=== PATIENT | female | born 1925 | race Caucasian/White ===

== ENCOUNTER 2016-10-03 16:13 | Inpatient (IN) | payer BC ==
--- NOTE | ~2016-10-03 | IDS ---
Interim Discharge Summary [facility] [address] [place]. [address] NAME: CELESTE MCCLURE : [birth year] STATUS : ADM IN PAT#: [id number] AGE: 89 ADM/REG DATE : 10/03/16 MR#: [id number] REPORT SERV DATE: 10/08/16 DICTATED BY: GARRISON BILL DATE: 10/07/16 REPORT STATUS : Draft TRANSCRIBED BY: MODL DATE: 10/07/16 ADMISSION DATE: 10/03/2016 DISCHARGE DATE: PRINCIPAL DIAGNOSIS: Acute systolic congestive heart failure with [id number] elevation myocardial infarction and cardiogenic shock. SECONDARY DIAGNOSIS: 1. Pubic ramus fracture with large hip hematoma and acute blood loss anemia and also recurrent syncope with hypotension secondary to #1. 2. Thrombocytopenia. 3. Cardiac cachexia. HISTORY PRESENT ILLNESS: Please see Dr. Taveras's dictation, 10/03/2018. HOSPITAL COURSE: Admitted with a pubic ramus fracture after recurrent syncopal events led to a fall upon her bottom with resulting pubic ramus fracture and a large hip hematoma. The patient was found to have significant blood loss anemia but also severe thrombocytopenia with a platelet count of 27. Blood and platelets were ordered. However, upon evaluating the patient, she was found to be hypotensive with a very abnormal cardiac exam including a highly enlarged and displaced cardiac upstrokes with severe anasarca, diminished peripheral perfusion, and highly elevated jugular venous distention. The patient had a concerning exam for cardiogenic shock. EKG revealed nonspecific ST-segment depression throughout most leads. Initial troponin was 2, follow up troponin was 30. The patient was transferred to the cardiac floor, was put on a Lasix infusion and dopamine infusion in addition to receiving the blood products. Initially, she responded poorly but did diurese, had a dopamine rate at 7.5 mcg/kg per minute, the patient's color improved, and her respiratory status improved. She was not, however, felt to be a candidate for physical therapy and still struggled with difficulties with thrombocytopenia and pain in the pelvic area. The patient had an echocardiogram, revealed an ejection fraction of 10%. Even off the dopamine, blood pressure was too low for afterload reduction of beta blockade. The presence of the severe thrombocytopenia precluded the use of any aspirin or products for any anticoagulants. The patient in fact was felt to have terminal disease. The sons understood her prognosis as did the patient; however, the patient's who is extremely old and infirm himself was reluctant to agree to hospice care, they were pending to meet with them to discuss hospice strategies at a [facility] placement on 10/08/2016 but anticipating that the patient's mortality over the coming weeks was extremely high regardless of any interventions that we might do. KATHARINA/AMAURY Garrison Bill M.D. Interim Discharge Summary [address] [address] NAME: CELESTE MCCLURE : [birth year] STATUS : ADM IN PAT#: [id number] AGE: 89 ADM/REG DATE : 10/03/16 MR#: [id number] REPORT SERV DATE: 10/08/16 DICTATED BY: GARRISON BILL DATE: 10/07/16 REPORT STATUS : Draft TRANSCRIBED BY: AMAURY DATE: 10/07/16 / [id number] CC: Scott Butterfield M.D. Theodore Richards, M.D.
--- NOTE | ~2016-10-03 | CN ---
Consultation Report [facility] [address] [place]. [address] NAME: CELESTE MCCLURE : [birth year] STATUS : ADM IN PAT#: [id number] AGE: 89 ADM/REG DATE : 10/03/16 MR#: [id number] REPORT SERV DATE: 10/04/16 DICTATED BY: DAIN BOWERS DATE: 10/04/16 REPORT STATUS : Draft TRANSCRIBED BY: AMAURY DATE: 10/04/16 DATE OF CONSULTATION: 10/04/2016 REASON FOR CONSULTATION: Pelvic fracture. HISTORY OF PRESENT ILLNESS: Ms Mcclure is an 89-year-old female, who fell landing on her left side yesterday. She had immediate onset of pain and was unable to ambulate after the fall. She presented to the [facility] Emergency Room, where x-rays showed a left superior and inferior pubic ramus fracture. I have now been asked to see her for evaluation and treatment. On questioning, she complains of only left hip pain. She denies any mental status changes or loss of consciousness at the time of the fall. On physical examination, she is awake, alert, and oriented. There is no evidence of bony injury to either upper extremity or right lower extremity. With regard to her left lower extremity, there is no shortening or rotational deformity. She has some minimal trochanteric tenderness. She cannot actively straight leg raise. She has a mild-to- moderate amount of pain with passive straight leg raising. There was very minimal pain with axial loading of her left lower extremity. She is tender over the left superior pubic ramus. There is no right-sided tenderness. She has normal sciatic nerve function on the left and weakly present, but palpable pedal pulses. DIAGNOSTIC STUDIES: X-rays show a minimally displaced left superior and inferior pubic ramus fractures. IMPRESSION: Left superior and inferior pubic ramus fractures. Ms Mcclure can be immobilized and weightbearing as tolerated with physical therapy using a walker. Follow up with Dr. Cota in three to four weeks. Thanks for the consultation. ONEL/AMAURY Dain Bowers M.D. / [id number] CC: Nilesh Alba M.D. Chele Pérez M.D.
--- NOTE | ~2016-10-03 | DS ---
Discharge Summary [facility] [address] [place]. [address] NAME: CELESTE MCCLURE : [birth year] STATUS : ADM IN [facility]#: [id number] AGE: 89 ADM/REG DATE : 10/03/16 MR#: [id number] REPORT SERV DATE: 10/09/16 DICTATED BY: AHMET WEAVER DATE: 10/08/16 REPORT STATUS : Draft TRANSCRIBED BY: MODJose DATE: 10/08/16 ADMISSION DATE: 10/03/2016 DISCHARGE DATE: 10/09/2016 PROCEDURES DONE: 1. On 10/03/2016 x-ray of hip: Acute appearing left superior and inferior pubic rami fractures. Severely decreased mineralization of bone. If dura remains concern for additional fracture or deformities, then followup CT might be considered. 2. On 10/03/2016 CT of the pelvis without contrast. Minimally displaced fractures anterior column left acetabulum, minimally displaced fracture superior left pubic symphysis, mildly displaced fractures inferior left pubic ramus, and minimally displaced vertical fracture through the body of the left sacrum parallel to the SI joint. No associated SI joint diathesis. Old postsurgical changes right proximal femur and lumbosacral spine. 3. On 10/04/2016 chest x-ray: Low lung volumes with bibasilar atelectasis and crowding of the pulmonary vasculature. No definite acute infiltrate seen. Atherosclerotic change of the thoracic aorta. 4. On 10/04/2016 x-ray of lower extremity: No evidence of acute left lower DVT. 5. On 10/05/2016 2D echo: Severely decreased left ventricular systolic function with an EF of 10% to 15%. Dilated left ventricle. Global hypokinesis with more focal anterior/septal hyper contractility. Right ventricle is moderately enlarged with severely reduced systolic function. Severe pulmonary hypertension. Moderate to severe tricuspid regurgitation. Moderate mitral regurg. By atrial enlargement. Echogenic material in the left lung adjacent to posterior left ventricle questionable unclear etiology. CONSULTATIONS: 1. Dain Bowers M.D. for Orthopedics. 2. Cardiology consult. REASON FOR ADMISSION: Fall with left hip pain. Please refer to interim discharge summary dated 10/07/[address] Alba. HISTORY OF HOSPITAL STAY: An 89-year-old white female with past medical history of recurrent falls with status post cervical fracture approximately three months ago, hyperlipidemia, GERD, status post right hip injury, chronic edema, presenting with fall with left hip pain. The patient was admitted for further evaluation of fall with left hip pain. Orthopedics was consulted and felt the patient will just be weightbearing regarding her left hip pain from fall. On further evaluation the patient was found to have abnormal cardiac exam which led to diagnosis of non-ST elevation [place]. Both on EKG findings as well as troponin elevations. Cardiology was consulted and felt the patient is not a candidate for any intervention, and felt that the patient is more appropriate for hospice. The patient was put on dobutamine secondary to the low EF of 10% and also diuresis. The patient was able to respond, but again due to the patient's severe congestive heart failure, the patient could not get the necessary medicines for beta shashi or DAMIAN inhibitors. During this time, the patient was Discharge Summary [address] [place]. [address] NAME: CELESTE MCCLURE : [birth year] STATUS : ADM IN [facility]#: [id number] AGE: 89 ADM/REG DATE : 10/03/16 MR#: [id number] REPORT SERV DATE: 10/09/16 DICTATED BY: AHMET WEAVER DATE: 10/08/16 REPORT STATUS : Draft TRANSCRIBED BY: AMAURY DATE: 10/08/16 agreeable to hospice care due to severity of her illness. Both the sons at bedside prior to the day of discharge agreed with [facility]. The patient is being planned for a discharge on 10/09/2016. DISPOSITION: The patient is in comfort, feeling no pain. ACTIVITY: As tolerated. DIET: Regular. INSTRUCTIONS UPON DISCHARGE: None, the patient will be followed by [facility]. MEDICATIONS UPON DISCHARGE: 1. Levothyroxine 100 mcg p.o. daily. 2. Prilosec 40 mg p.o. daily. 3. Zoloft 50 mg p.o. b.i.d. 4. Zocor 80 mg p.o. q.h.s. DIAGNOSES UPON DISCHARGE: 1. Fall with left hip pain secondary to pubic ramus fracture. 2. 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 3. Jis-[id number] myocardial infarction. 4. Anemia secondary to acute blood loss. 5. Thrombocytopenia. 6. C-spine fracture secondary to fall. 7. Hypothyroid. 8. Gastroesophageal reflux disease. FBJ/MODL Ahmet Weaver MD / [id number] CC: MD Chele Cid M.D.
--- NOTE | ~2016-10-03 | HP ---
History And Physical [facility] [id number] [place]. [address] NAME: CELESTE MCCLURE : [birth year] STATUS : ADM IN [facility]#: [id number] AGE: 89 ADM/REG DATE : 10/03/16 MR#: [id number] REPORT SERV DATE: 10/04/16 DICTATED BY: YAMILETH TURCIOS DATE: 10/04/16 REPORT STATUS : Draft TRANSCRIBED BY: MODL DATE: 10/04/16 DATE OF ADMISSION: 10/03/2016 CHIEF COMPLAINT: Fall with left hip pain. HISTORY OF PRESENT ILLNESS: The patient is an 89-year-old female with past medical history of recurrent falls and recent cervical fracture approximately three months ago, seen at [facility] by Dr. Guerrero and in current [facility], who is at home doing daily activities when she had same-level fall and had acute left hip and bottom pain. Symptoms have been constant, moderate, happened approximately five to six hours prior to arrival. Quality was approximately dull without radiating, not associated with any nausea, vomiting, fever, chills, shortness of breath, diarrhea, wheezing, or sweating, and did not have any neck trauma or head trauma. Symptoms worsened by range of motion and palpation, relieved only by rest and IV pain medication given in emergency room. Symptoms still present but significantly improved. REVIEW OF SYSTEMS: A 10-point review of systems negative except that noted in the HPI. PAST MEDICAL HISTORY: GERD, recent cervical fracture, multilevel, seen by Dr. Guerrero in [facility], chronic edema, hyperlipidemia, GERD, and right hip surgery. FAMILY HISTORY: Negative for heart disease and diabetes. SOCIAL HISTORY: No smoking, alcohol, or illicits. at home. SURGICAL HISTORY: Has had prior orthopedic surgeries and currently in [place] collar, nonsurgical. PHYSICAL EXAMINATION: VITAL SIGNS: The patient's blood pressure 104/56, temperature , respirations 16, O2 sats 95%. GENERAL: No acute distress, calm, pleasant, comfortable, alert. EYES: No scleral icterus, EOMI, but does have right cataract. ENT: Nares patent. Tongue midline. NECK: In [place] collar. RESPIRATORY: Clear to auscultation. No wheezes or rales. CV: Regular rate. No rubs or gallops. GI: Soft, nontender, and nondistended. Bowel sounds positive. : Deferred. MUSCULOSKELETAL: Does have pain with hip flexion, rotation, and range of motion, but sensation is still grossly intact in lower extremities. Moves all extremities. Strength in feet, equal and symmetrical. Strength in hands, equal and symmetrical. SKIN: Warm and dry. LYMPH: Does have mild bilateral pedal edema. HEME: No bleeding or bruising. History And Physical [address] [place]. [address] NAME: CELESTE MCCLURE : [birth year] STATUS : ADM IN PAT#: [id number] AGE: 89 ADM/REG DATE : 10/03/16 MR#: [id number] REPORT SERV DATE: 10/04/16 DICTATED BY: YAMILETH TURCIOS DATE: 10/04/16 REPORT STATUS : Draft TRANSCRIBED BY: AMAURY DATE: 10/04/16 NEURO: Alert and oriented. Sensation is intact in lower extremities and upper extremities and moves hands, fingers, toes symmetrically and symmetrical hand band sewer. Complete lower extremity exam with flexion slightly limited due to pain. PSYCH: Appropriate mood and affect, pleasant, joking manner. LABORATORY DATA: No labs currently. Pelvis CT, minimally displaced fractures, anterior column left acetabulum, minimally displaced fracture superior left pubic symphysis, mildly displaced fracture of the inferior left pubic ramus, and minimally displaced vertical fracture through the body of the left sacrum parallel to the SI joint. No associated SI joint diastasis, old postsurgical changes to the right proximal femur and lumbosacral spine. No EKG currently on chart. ASSESSMENT: 1. Acetabulum and left pubic symphysis fracture. 2. Gastroesophageal reflux disease. 3. Fall. 4. Prior cervical fracture, in [place] collar. 5. Chronic edema. 6. Hyperlipidemia. PLAN: 1. Acetabulum, pubic symphysis fracture, pain control. Ortho evaluation likely nonoperative, but we will have PT/OT evaluation. 2. GERD, Protonix. 3. Fall, frequent, will need PT/OT for strength support, currently in [place] collar secondary to multilevel cervical fracture. 4. Prior cervical fracture, in [place] collar, multilevel reported per patient. Sees Dr. Guerrero at [facility]. We will try to obtain records. 5. Chronic edema. Check BMP and TSH. She is on diuretics empirically for many years. 6. Hyperlipidemia, on Zocor. All questions answered. DISPOSITION: Pending ortho evaluation. PT/OT. DDN/MODL Yamileth Turcios MD / [id number] CC: Scott Butterfield M.D.
[~2016-10-03 16:13] MED LIST: ACCU10 PO; ACCUPRIL40 MG PO; ATEN25 PO; ATV.5 PO; ATV1 PO; BAC PO; BUM2 PO; LORT7 PO; LORTAB 5 PO; MAX25 PO; PROTONIX PO; STOOL SOFTEN100 MG PO; STOOL SOFTEN240 MG PO; SYN075 PO; ZOCOR40 PO; ZOCOR80 MG PO; ZOL50 PO; [UNRECOGNIZED DRUG - OTHER] PR
[2016-10-03] MEDS ORDERED: ZOCOR80 MG PO (21:53)
[2016-10-03] MEDS ORDERED: ZOL50 PO (21:53)
[2016-10-03] MEDS ORDERED: ATV1 PO (21:54)
[2016-10-03] MEDS ORDERED: ULTRAM50 PO (21:54)
[2016-10-03] MEDS ORDERED: PRESERVISION A1 EAC1 PO (21:55)
[2016-10-03] MEDS ORDERED: L40 PO (21:55)
[2016-10-03] MEDS ORDERED: PRILOSEC40 MG PO (21:56)
[2016-10-03] MEDS ORDERED: SYSTANE OPH (21:56)
[2016-10-03] MEDS ORDERED: *UNABLE1 (21:56)
[2016-10-03 23:29] LABS: ASCORBIC ACID (UR NOT ORDER) NEG (NEG); BILIRUBIN, URINE NEGATIVE (NEG); ER URINALYSIS TAT 0 Hrs 00 Mins; KETONE, URINE NEGATIVE (NEG); LEUKOCYTE ESTERASE(NOT OR NEG (NEG); NITRITE (URINE) NEG (NEG); WBC (NOT ORDERED) (RFLEX) 3 (0-5)
[2016-10-04 06:43] LABS: BASOPHILS 0.2 %; BASOPHILS ABSOLUTE 0.02 10/3/uL (0.0-0.16); EOSINOPHILS 0.6 %; EOSINOPHILS ABSOLUTE 0.05 10/3/uL (0.0-0.53); IMMATURE GRANULOCYTES 0.5 %; IMMATURE GRANULOCYTES ABSOLUTE 0.04 10/3/uL (0.0-0.11); LYMPHOCYTES 10.4 %; LYMPHOCYTES ABSOLUTE 0.85 10/3/uL (0.67-4.30); MEAN CORPUS HGB CONC 31.9 g/dL (32.0-36.0); MEAN CORPUSCULAR HEMOGLOB 28.6 pg (26.0-34.0); MEAN CORPUSCULAR VOLUME 89.6 fL (80-100); MEAN PLATELET VOLUME 9.4 fL (9.2-13.0); MONOCYTES 7.1 %; MONOCYTES ABSOLUTE 0.58 10/3/uL (0.21-1.20); NEUTROPHILS 81.2 %
[2016-10-04 06:45] LABS: WHITE BLOOD CELLS 8.1 10/3/uL (4.5-10.5)
[2016-10-04 06:46] LABS: HEMATOCRIT 25.1 % (36.0-48.0); PLATELET COUNT 27 10/3/uL (150-400)
[2016-10-04 06:47] LABS: MANUAL DIFF NO %
[2016-10-04 06:57] LABS: BUN (BLOOD UREA NITROGEN) 18 MG/DL (6-23); CHLORIDE, SERUM 99 MMOL/L (96-112); CO2 (CARBON DIOXIDE) 31 MMOL/L (24-34); GFR AFRICAN AMERICAN 66 ML/MIN (>=60); GFR NON AFRICAN AMERICAN 57 ML/MIN (>=60); GLUCOSE, SERUM 117 MG/DL (60-99); POTASSIUM, SERUM 3.5 MMOL/L (3.5-5.3); SODIUM, SERUM 141 MMOL/L (135-148)
[2016-10-04 07:28] LABS: ANISOCYTOSIS 1+ (5-10/OIF) (0-5/OIF); HELMET CELLS OCC (0-2/OIF); MACROCYTES 1+ (5-10/OIF) (0-5/OIF)
[2016-10-04 07:29] LABS: POLYCHROMASIA 1+ (2-5/OIF) (0-1/OIF)
[2016-10-04] MEDS ORDERED: LEVOTHYROXIN100 MCG PO (09:22)
[2016-10-04] MEDS ORDERED: KLOR-CON M2020 MEQ PO (09:22)
[2016-10-04] MEDS ORDERED: COREG3 PO (09:22)
[2016-10-04 15:04] LABS: BASOPHILS 0.1 %; BASOPHILS ABSOLUTE 0.01 10/3/uL (0.0-0.16); EOSINOPHILS 1.3 %; EOSINOPHILS ABSOLUTE 0.09 10/3/uL (0.0-0.53); HEMATOCRIT 23.3 % (36.0-48.0); HEMOGLOBIN 7.4 g/dL (12.0-16.0); IMMATURE GRANULOCYTES 0.3 %; IMMATURE GRANULOCYTES ABSOLUTE 0.02 10/3/uL (0.0-0.11); LYMPHOCYTES 11.9 %; LYMPHOCYTES ABSOLUTE 0.81 10/3/uL (0.67-4.30); MEAN CORPUS HGB CONC 31.8 g/dL (32.0-36.0); MEAN CORPUSCULAR HEMOGLOB 28.2 pg (26.0-34.0); MEAN CORPUSCULAR VOLUME 88.9 fL (80-100); MEAN PLATELET VOLUME 10.4 fL (9.2-13.0); MONOCYTES 6.6 %; MONOCYTES ABSOLUTE 0.45 10/3/uL (0.21-1.20); NEUTROPHILS 79.8 %; NEUTROPHILS ABSOLUTE 5.44 10/3/uL (2.02-8.40); RBC DISTRIBUTION WIDTH 17.3 % (12.0-16.0); RED CELL COUNT 2.62 10/6/uL (4.0-5.6); WHITE BLOOD CELLS 6.8 10/3/uL (4.5-10.5)
[2016-10-04 15:08] LABS: PLATELET COUNT 23 10/3/uL (150-400)
[2016-10-04 15:09] LABS: MANUAL DIFF NO %
[2016-10-04 15:17] LABS: INTERNATIONAL NORMAL RATI 1.4 UNITS (-)
[2016-10-04 15:26] LABS: % IRON SAT 24 % (20-50); ALKALINE PHOSPHATASE 93 U/L (45-117); BUN (BLOOD UREA NITROGEN) 20 MG/DL (6-23); CHLORIDE, SERUM 101 MMOL/L (96-112); CO2 (CARBON DIOXIDE) 30 MMOL/L (24-34); CREATININE 1.25 MG/DL (0.55-1.02); FERRITIN 52 NG/ML (8-252); GFR AFRICAN AMERICAN 44 ML/MIN (>=60); GFR NON AFRICAN AMERICAN 38 ML/MIN (>=60); GLUCOSE, SERUM 130 MG/DL (60-99); IRON BINDING CAPACITY 285 MCG/DL (225-410); IRON, SERUM 68 MCG/DL (35-150); PARTIAL THROMBO TIME 33.7 SEC (22.5-37.2); POTASSIUM, SERUM 3.6 MMOL/L (3.5-5.3); SGOT(AST) 37 U/L (5-40); SGPT(ALT) 18 U/L (5-65); SODIUM, SERUM 140 MMOL/L (135-148)
[2016-10-04 15:27] LABS: A/G RATIO 0.8 (0.7-1.9); ALBUMIN 2.5 G/DL (3.5-5.0); GLOBULIN 3.1 G/DL (2.5-4.1); PROTIME (NOT ORD) 17.1 SEC (12.0-14.5); TOTAL BILIRUBIN 1.3 MG/DL (0-1.2); TOTAL PROTEIN 5.6 G/DL (6.0-8.5)
[2016-10-04 15:30] LABS: ANISOCYTOSIS 1+ (5-10/OIF) (0-5/OIF)
[2016-10-05 11:42] LABS: BASOPHILS 0.2 %; BASOPHILS ABSOLUTE 0.02 10/3/uL (0.0-0.16); EOSINOPHILS 0 %; IMMATURE GRANULOCYTES 0.6 %; IMMATURE GRANULOCYTES ABSOLUTE 0.06 10/3/uL (0.0-0.11); LYMPHOCYTES 8.8 %; LYMPHOCYTES ABSOLUTE 0.94 10/3/uL (0.67-4.30); MEAN CORPUS HGB CONC 31.4 g/dL (32.0-36.0); MEAN CORPUSCULAR HEMOGLOB 27.8 pg (26.0-34.0); MEAN CORPUSCULAR VOLUME 88.6 fL (80-100); MEAN PLATELET VOLUME 10.7 fL (9.2-13.0); MONOCYTES 9.6 %; MONOCYTES ABSOLUTE 1.03 10/3/uL (0.21-1.20); NEUTROPHILS 80.8 %; NEUTROPHILS ABSOLUTE 8.67 10/3/uL (2.02-8.40)
[2016-10-05 11:44] LABS: HEMATOCRIT 28.7 % (36.0-48.0); RED CELL COUNT 3.24 10/6/uL (4.0-5.6); WHITE BLOOD CELLS 10.7 10/3/uL (4.5-10.5)
[2016-10-05 11:45] LABS: MANUAL DIFF NO %; PLATELET COUNT 64 10/3/uL (150-400)
[2016-10-05 12:01] LABS: CALCIUM, SERUM 8.3 MG/DL (8.5-10.4); CHLORIDE, SERUM 96 MMOL/L (96-112); CO2 (CARBON DIOXIDE) 32 MMOL/L (24-34); CREATININE 1.43 MG/DL (0.55-1.02); GFR AFRICAN AMERICAN 38 ML/MIN (>=60); GFR NON AFRICAN AMERICAN 32 ML/MIN (>=60); GLUCOSE, SERUM 137 MG/DL (60-99); POTASSIUM, SERUM 3.9 MMOL/L (3.5-5.3); SODIUM, SERUM 139 MMOL/L (135-148)
[2016-10-05 12:02] LABS: BUN (BLOOD UREA NITROGEN) 24 MG/DL (6-23)
[2016-10-05 12:22] LABS: PLATELET ESTIMATE DEC (ADEQUATE)
[2016-10-05 16:40] LABS: BASOPHILS 0.2 %; BASOPHILS ABSOLUTE 0.02 10/3/uL (0.0-0.16); EOSINOPHILS 0.1 %; EOSINOPHILS ABSOLUTE 0.01 10/3/uL (0.0-0.53); HEMATOCRIT 28.1 % (36.0-48.0); HEMOGLOBIN 9.1 g/dL (12.0-16.0); IMMATURE GRANULOCYTES 0.5 %; IMMATURE GRANULOCYTES ABSOLUTE 0.06 10/3/uL (0.0-0.11); LYMPHOCYTES 12.4 %; LYMPHOCYTES ABSOLUTE 1.36 10/3/uL (0.67-4.30); MEAN CORPUS HGB CONC 32.4 g/dL (32.0-36.0); MEAN CORPUSCULAR HEMOGLOB 28.5 pg (26.0-34.0); MEAN CORPUSCULAR VOLUME 88.1 fL (80-100); MEAN PLATELET VOLUME 10.6 fL (9.2-13.0); MONOCYTES 7.4 %; MONOCYTES ABSOLUTE 0.81 10/3/uL (0.21-1.20); NEUTROPHILS 79.4 %; NEUTROPHILS ABSOLUTE 8.69 10/3/uL (2.02-8.40); RBC DISTRIBUTION WIDTH 17.1 % (12.0-16.0); RED CELL COUNT 3.19 10/6/uL (4.0-5.6)
[2016-10-05 16:41] LABS: MANUAL DIFF NO %; PLATELET COUNT 66 10/3/uL (150-400)
[2016-10-06 05:33] LABS: BASOPHILS 0.1 %; BASOPHILS ABSOLUTE 0.01 10/3/uL (0.0-0.16); EOSINOPHILS 0.3 %; EOSINOPHILS ABSOLUTE 0.03 10/3/uL (0.0-0.53); HEMATOCRIT 27.9 % (36.0-48.0); HEMOGLOBIN 9.1 g/dL (12.0-16.0); IMMATURE GRANULOCYTES 0.6 %; IMMATURE GRANULOCYTES ABSOLUTE 0.06 10/3/uL (0.0-0.11); LYMPHOCYTES 13.3 %; LYMPHOCYTES ABSOLUTE 1.33 10/3/uL (0.67-4.30); MEAN CORPUS HGB CONC 32.6 g/dL (32.0-36.0); MEAN CORPUSCULAR HEMOGLOB 29.1 pg (26.0-34.0); MEAN CORPUSCULAR VOLUME 89.1 fL (80-100); MEAN PLATELET VOLUME 10.9 fL (9.2-13.0); MONOCYTES 7.3 %; MONOCYTES ABSOLUTE 0.73 10/3/uL (0.21-1.20); NEUTROPHILS 78.4 %; NEUTROPHILS ABSOLUTE 7.83 10/3/uL (2.02-8.40); PLATELET COUNT 70 10/3/uL (150-400); RBC DISTRIBUTION WIDTH 17.2 % (12.0-16.0); RED CELL COUNT 3.13 10/6/uL (4.0-5.6)
[2016-10-06 05:34] LABS: MANUAL DIFF NO %
[2016-10-06 05:39] LABS: BUN (BLOOD UREA NITROGEN) 26 MG/DL (6-23); CALCIUM, SERUM 8.2 MG/DL (8.5-10.4); CHLORIDE, SERUM 96 MMOL/L (96-112); CO2 (CARBON DIOXIDE) 34 MMOL/L (24-34); CREATININE 1.09 MG/DL (0.55-1.02); GFR AFRICAN AMERICAN 52 ML/MIN (>=60); GFR NON AFRICAN AMERICAN 45 ML/MIN (>=60); GLUCOSE, SERUM 132 MG/DL (60-99); POTASSIUM, SERUM 3.4 MMOL/L (3.5-5.3); SODIUM, SERUM 139 MMOL/L (135-148)
[2016-10-06 05:55] LABS: ANISOCYTOSIS 1+ (5-10/OIF) (0-5/OIF); ELLIPTOCYTES 1+ (3-10/OIF) (0-2/OIF); PLATELET ESTIMATE DEC (ADEQUATE); POLYCHROMASIA 1+ (2-5/OIF) (0-1/OIF)
[2016-10-06 05:56] LABS: TEARDROP SHAPED RBCS OCC (0-2/OIF)
[2016-10-07 06:04] LABS: BASOPHILS 0.3 %; BASOPHILS ABSOLUTE 0.02 10/3/uL (0.0-0.16); EOSINOPHILS 1.3 %; HEMATOCRIT 26.5 % (36.0-48.0); HEMOGLOBIN 8.5 g/dL (12.0-16.0); IMMATURE GRANULOCYTES 0.3 %; IMMATURE GRANULOCYTES ABSOLUTE 0.02 10/3/uL (0.0-0.11); LYMPHOCYTES 11.7 %; LYMPHOCYTES ABSOLUTE 0.92 10/3/uL (0.67-4.30); MEAN CORPUS HGB CONC 32.1 g/dL (32.0-36.0); MEAN CORPUSCULAR HEMOGLOB 29.2 pg (26.0-34.0); MEAN CORPUSCULAR VOLUME 91.1 fL (80-100); MEAN PLATELET VOLUME 10.7 fL (9.2-13.0); MONOCYTES 7.7 %; NEUTROPHILS 78.7 %; NEUTROPHILS ABSOLUTE 6.18 10/3/uL (2.02-8.40); PLATELET COUNT 57 10/3/uL (150-400); RBC DISTRIBUTION WIDTH 17.1 % (12.0-16.0); RED CELL COUNT 2.91 10/6/uL (4.0-5.6); WHITE BLOOD CELLS 7.8 10/3/uL (4.5-10.5)
[2016-10-07 06:05] LABS: MANUAL DIFF NO %
[2016-10-07 06:15] LABS: BUN (BLOOD UREA NITROGEN) 25 MG/DL (6-23); CALCIUM, SERUM 8.2 MG/DL (8.5-10.4); CHLORIDE, SERUM 96 MMOL/L (96-112); CO2 (CARBON DIOXIDE) 33 MMOL/L (24-34); CREATININE 0.99 MG/DL (0.55-1.02); GFR AFRICAN AMERICAN 59 ML/MIN (>=60); GFR NON AFRICAN AMERICAN 51 ML/MIN (>=60); POTASSIUM, SERUM 3.8 MMOL/L (3.5-5.3); SODIUM, SERUM 137 MMOL/L (135-148)
[2016-10-07 06:17] LABS: GLUCOSE, SERUM 193 MG/DL (60-99)
[2016-10-07 06:42] LABS: ANISOCYTOSIS 1+ (5-10/OIF) (0-5/OIF)
[2016-10-07 06:43] LABS: ELLIPTOCYTES 1+ (3-10/OIF) (0-2/OIF); POLYCHROMASIA 1+ (2-5/OIF) (0-1/OIF)
== END 2016-10-09 19:43 | disposition hospice, home (50) | DRG 280 ==
LOC: ER 16:13 → 3SO 23:17 → 6NO 10-04 18:24
PROVIDERS: Internal Medicine; Nurse Practitioner; Nurse Practitioner Gerontology; Student in an Organized Health Care Education/Training Program
PROC: 30233N1 Transfusion of Nonautologous Red Blood Cells into Peripheral Vein, Percutaneous Approach (ICD-10-PCS; 2016-10-04)
PROC: 30233R1 Transfusion of Nonautologous Platelets into Peripheral Vein, Percutaneous Approach (ICD-10-PCS; 2016-10-04)
PROC: 02HV33Z Insertion of Infusion Device into Superior Vena Cava, Percutaneous Approach (ICD-10-PCS; principal; 2016-10-05)
PROC: 4A02X4A Measurement of Cardiac Electrical Activity, Guidance, External Approach (ICD-10-PCS; 2016-10-05)
DX: I21.4 Non-ST elevation (NSTEMI) myocardial infarction (principal); R57.0 Cardiogenic shock; I50.23 Acute on chronic systolic (congestive) heart failure; I47.2 Ventricular tachycardia; S32.432A Displaced fracture of anterior column [iliopubic] of left acetabulum, initial encounter for closed fracture; N17.9 Acute kidney failure, unspecified; D62 Acute posthemorrhagic anemia; S32.19XA Other fracture of sacrum, initial encounter for closed fracture; S32.502A Unspecified fracture of left pubis, initial encounter for closed fracture; D69.6 Thrombocytopenia, unspecified; E03.9 Hypothyroidism, unspecified; K21.9 Gastro-esophageal reflux disease without esophagitis; W19.XXXA Unspecified fall, initial encounter; F41.9 Anxiety disorder, unspecified; E78.5 Hyperlipidemia, unspecified; D69.59 Other secondary thrombocytopenia; Z91.81 History of falling
CPT/HCPCS: 36415; 36569; 71010; 72192; 73502-LT; 80048; 80053; 81001; 82728; 83540; 83550; 83735; 83880; 84443; 84484; 85025; 85610; 85730; 86850; 86900; 86901; 86920; 93971; 96374; 96375; 96376; 97110-GP; 97163-GP; 97166-GO; 99285; A9270-GY; C1751; C8929; G8978-CL-GP; G8979-CJ-GP; J1940; J2405; P9035; P9040; Q9957